=== PATIENT | male | born 1985 | race Caucasian/White ===

== ENCOUNTER 2016-11-30 08:25 | Observation (INO) | payer OTHER ==
--- NOTE | 2016-11-30 08:17 | EDPHY ---
H & P Constitutional: Initial Vital Signs Temperature (C) 36.9 C 11/30/16 08:26 Heart Rate 91 11/30/16 08:26 Respiratory Rate 16 11/30/16 08:26 Blood Pressure 153/87 H 11/30/16 08:26 O2 Sat (%) 97 11/30/16 08:26 O2 Delivery Mode Nasal Cannula O2 (L/minute) 2 Allergies/Adverse Reactions: No Known Allergies Allergy (Unverified 02/26/13 13:38) Home Medications: Medication Instructions Recorded Albuterol Sulfate [Proair Hfa] 1 - 2 puffs IH DAILY PRN 11/30/16 Dextran 70/Hypromellose 1 each OP DAILY PRN 11/30/16 [Artificial Tears] Losartan Potassium [Cozaar 50 mg 50 mg PO DAILY 11/30/16 (*)] Medical Decision Making - Diagnostics Imaging Results: Imaging Impressions Chest X-Ray 11/30/16 08:28 Impression: Mild peribronchial thickening, which can be seen with bronchitis or fluid overload. Imaging: Discussed imaging studies w/ scallop binder Radiologist, I viewed and interpreted images myself ED Course/Re-evaluation: CHIEF COMPLAINT: Cardiac alert, near-syncope HISTORY OF PRESENT ILLNESS: The patient is a 31 y/o male arriving emergently via EMS as a Cardiac Alert with anteroseptal ST elevation and a near-syncopal event during exertion this morning. He has a history of hypertension and a family history of CAD. 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 He never had chest pain, tightness, or dyspnea. He has had similar episodes previously, but has never experienced chest pain with prior exertion. He was evaluated at [facility] 3 years ago after a similar syncope at work, but does not think he was diagnosed with cardiac disease apart from hypertension. He received 324mg PO aspirin prior to arrival. He attributes his symptoms today to exertion, dehydration, minimal sleep, and very little food or water prior to exercise this morning. He denies recent illness or trauma. He did take his normal 50mg Cozaar prior to exercising. REVIEW OF SYSTEMS: A 10 point review of systems was performed and is negative with the exception of the elements mentioned in the history of present illness. PHYSICAL EXAM: HR, BP, O2 Sat, RR. Temp noted General Appearance: Alert, well hydrated, appropriate, and non-toxic appearing. Head: Atraumatic without scalp tenderness or obvious injury Eyes: Pupils equal, round, reactive to light and accommodation, EOMI, no trauma , no injection. Ears: Clear bilaterally, no perforation, normal landmarks Nose: Atraumatic, no rhinorrhea, clear. Throat: Mucus membranes moist. Neck: Supple, nontender, no lymphadenopathy. Respiratory: No retractions, no distress, no wheezes, and no accessory muscle use. Lungs have mild scattered rhonchi. Cardiovascular: Regular rate and rhythm, no murmurs, rubs, or gallops. Good capillary refill all extremities. Gastrointestinal: Abdomen is soft, nontender, non-distended, no masses, no rebound, no guarding, no peritoneal signs. Musculoskeletal: Normal active ROM of all extremities, atraumatic. Neurological: Alert, appropriate, and interactive. Nonfocal neuro exam. Skin: No rashes, good turgor, no nodules on palpation. 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 Chews tobacco, no smoking. PCP: Dr. Marcus DIAGNOSTICS/PROCEDURES/CRITICAL CARE TIME: The 12 lead EKG was interpreted by myself. Normal sinus rhythm with ischemia in anteroseptals leads. See hard copy and/or "tracemaster" electronic copy for interpretation. Chest x-ray: mild peribronchial thickening. Echocardiogram: normal per Dr. Walsh. DIFFERENTIAL DIAGNOSIS: The differential diagnosis for the patient's near- syncope included but was not limited to vasovagal syncope, arrhythmia, dehydration, cardiogenic causes, neurogenic causes, and blood loss. MEDICAL DECISION MAKIN: Dr. Walsh, digital color press operator, at bedside. 0825: Met EMS upon arrival. This is a 31 y/o male who presents as a Cardiac Alert following an exertional near-syncopal event with associated STEMI criteria on his prehospital EKG. He has a family history of CAD and personal history of hypertension. He does not have associated chest pain. His exam is largely unremarkable. In-house EKG also shows ischemic pattern in anteroseptal leads. Patient received 324mg PO aspirin prehospitally. 0830: Dr. Stoll, textile colorist formulator, at bedside. IVs established by EMS. Labs drawn including CBC, CHEM, troponin, d-dimer. Chest x-ray and echocardiogram ordered. Cardiologists are making determination if patient will be taken to cardiac cath tech urgently or not. Dr. Walsh reviewed old EKG from [facility] in 2011, which shows some ST elevation in precordial leads. We will attempt to obtain records from [facility] where the patient was evaluated for similar symptoms. 0907: Troponin is normal. Dr. Walsh has decided not to take patient to cardiac cath tech at this time, but does think he will require this procedure soon. 0909: Spoke with hospitalist service. Dr. Jolley accepts admission for acute coronary syndrome and near-syncope. - Data Points Laboratory Results: Laboratory Results 11/30/16 08:36 11/30/16 08:36 11/30/16 11/30/16 11/30/16 08:36 08:36 08:36 WBC 6.11 10^3/uL 10^3/uL (3.80-9.50) RBC 4.52 10^6/uL 10^6/uL (4.40-6.38) Hgb 14.9 g/dL g/dL (13.7-17.5) Hct 42.9 % % (40.0-51.0) MCV 94.9 fL fL (81.5-99.8) MCH 33.0 pg pg (27.9-34.1) MCHC 34.7 g/dL g/dL (32.4-36.7) RDW 12.7 % % (11.5-15.2) Plt Count 211 10^3/uL 10^3/uL (150-400) MPV 10.2 fL fL (8.7-11.7) Neut % (Auto) 56.2 % % (39.3-74.2) Lymph % (Auto) 24.1 % % (15.0-45.0) [place] % (Auto) 11.0 % % (4.5-13.0) Eos % (Auto) 7.4 % % (0.6-7.6) Baso % (Auto) 1.0 % % (0.3-1.7) Nucleat RBC Rel Count 0.0 % % (0.0-0.2) Absolute Neuts (auto) 3.44 10^3/uL 10^3/uL (1.70-6.50) Absolute Lymphs (auto) 1.47 10^3/uL 10^3/uL (1.00-3.00) Absolute Monos (auto) 0.67 10^3/uL 10^3/uL (0.30-0.80) Absolute Eos (auto) 0.45 10^3/uL H 10^3/uL (0.03-0.40) Absolute Basos (auto) 0.06 10^3/uL 10^3/uL (0.02-0.10) Absolute Nucleated RBC 0.00 10^3/uL 10^3/uL (0-0.01) Immature Gran % 0.3 % % (0.0-1.1) Immature Gran # 0.02 10^3/uL 10^3/uL (0.00-0.10) PT 13.8 SEC SEC (12.0-15.0) INR 1.07 (0.83-1.16) APTT 24.9 SEC SEC (23.0-38.0) D-Dimer < 0.27 ug/mLFEU ug/mLFEU (0.00-0.50) Sodium 140 mEq/L mEq/L (134-144) Potassium 4.5 mEq/L mEq/L (3.5-5.2) Chloride 105 mEq/L mEq/L (97-110) Carbon Dioxide 22 mEq/l mEq/l (22-31) Anion Gap 13 mEq/L mEq/L (8-16) BUN 26 mg/dL H mg/dL (7-23) Creatinine 1.2 mg/dL mg/dL (0.7-1.3) Estimated GFR > 60 Glucose 91 mg/dL mg/dL (70-100) Calcium 10.6 mg/dL H mg/dL (8.5-10.4) Troponin I < 0.012 ng/mL ng/mL (0-0.034) NT-Pro-B Natriuret Pep 14 pg/mL pg/mL (0-125) Departure - Departure Disposition: [facility] Inpatient Acute Clinical Impression: Acute coronary syndrome, Near syncope Condition: Fair Report Scribed for: Kade Pizano Report Scribed by: Jaylin Gates Date of Report: 11/30/16 Time of Report: 08:38
--- NOTE | 2016-11-30 08:38 | CPEKG ---
Heart Rate: 85 RR Interval: 706 P-R Interval: 164 QRSD Interval: 92 QT Interval: 372 QTC Interval: 443 P [place]: 66 QRS [place]: 11 T Wave [place]: 46 EKG Severity - ABNORMAL ECG - EKG Impression: SINUS RHYTHM EKG Impression: PROBABLE LEFT VENTRICULAR HYPERTROPHY EKG Impression: ST ELEV, PROBABLE NORMAL EARLY REPOL PATTERN Electronically Signed By: Kade Pizano 30-Nov-2016 14:38:38
[2016-11-30 08:39] LABS: % IMMATURE GRANULYOCYTES 0.3 % (0.0-1.1); ABSOLUTE IMMATURE GRANULOCYTES 0.02 10^3/uL (0.00-0.10); ADD DIFF? NO; ADD MORPH? NO; ADD SCAN? NO; ATYPICAL LYMPHOCYTE FLAG 10 (0-99); FRAGMENT RBC FLAG 0 (0-99); HEMATOCRIT 42.9 % (40.0-51.0); HEMOGLOBIN 14.9 g/dL (13.7-17.5); LEFT SHIFT FLG 0 (0-99); LIPEMIA HEMOLYSIS FLAG 90 (0-99); MEAN CELL HEMOGLOBIN CONCENTR. 34.7 g/dL (32.4-36.7); MEAN CELL VOLUME 94.9 fL (81.5-99.8); MEAN PLATELET VOLUME 10.2 fL (8.7-11.7); PLATELET CLUMPS FLAG 20 (0-99); PLATELET COUNT 211 10^3/uL (150-400); RED BLOOD CELL COUNT 4.52 10^6/uL (4.40-6.38); RED CELL DISTRIBUTION WIDTH 12.7 % (11.5-15.2)
[2016-11-30] MEDS ORDERED: LIDOCAINE 1% 300 MG/30 ML SDV ONE (08:47)
[2016-11-30] MEDS ORDERED: fentaNYL 100 MCG/2 ML INJ ONE (08:47)
[2016-11-30] MEDS ORDERED: MIDAZOLAM 2 MG/2 ML VIAL ONE (08:48)
[2016-11-30] MEDS ORDERED: IOPAMIDOL (ISOVUE-370) 150 ML BTL IV ONE (08:48)
[2016-11-30 08:49] LABS: ANION GAP 13 mEq/L (8-16); CALCIUM 10.6 mg/dL (8.5-10.4); CARBON DIOXIDE 22 mEq/l (22-31); CHLORIDE 105 mEq/L (97-110); CREATININE 1.2 mg/dL (0.7-1.3); GLOMERULAR FILTRATION RATE > 60; GLUCOSE 91 mg/dL (70-100); POTASSIUM 4.5 mEq/L (3.5-5.2); SODIUM 140 mEq/L (134-144)
[2016-11-30 08:50] LABS: APTT 24.9 SEC (23.0-38.0); INR 1.07 (0.83-1.16); PROTIME(PATIENT) 13.8 SEC (12.0-15.0)
[2016-11-30 09:01] LABS: TROPONIN I < 0.012 ng/mL (0-0.034)
[2016-11-30] MEDS ORDERED: NON-FORMULARY NEW DRUG (Dextran 70/Hypromellose [Artificial Tears] 1 EACH) OP PRN (11:14)
[2016-11-30] MEDS ORDERED: ALBUTEROL INH PREPACK MDI TAKEHOME PRN (11:14)
[2016-11-30] MEDS ORDERED: TEARS/DEXTRAN 70/HYPROMELLOSE 15 ML OPHT.BTL OP PRN (11:17)
[2016-11-30] MEDS ORDERED: ALBUTEROL 200 PUFFS/18 GM MDI IH PRN (11:18)
--- NOTE | 2016-11-30 11:46 | PDGENHP ---
History and Physical - Chief Complaint dry heaves - History of Present Illness 31 y/o male with h/o hypertension and asthma presented to the ED this morning as a cardiac altert. 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 He has been working on little sleep and a high degree of stress. He did not have breakfast this morning. On his 3rd lap of racing up [employer] he developed some nausea and dry heaves. He had to sit down and felt like he might pass out. He denies any chest pain of LOC. Currently he feels better. He had a similar episode 3-4 years ago at which time he had a negative workup with negative stress testing at [facility]. History Information - Allergies/Home Medication List Allergies/Adverse Reactions: No Known Allergies Allergy (Unverified 02/26/13 13:38) Home Medications: Albuterol Sulfate [Proair Hfa] 1 - 2 puffs IH DAILY PRN 11/30/16 [Last Taken Unknown] Dextran 70/Hypromellose [Artificial Tears] 1 each OP DAILY PRN 11/30/16 [Last Taken Unknown] Losartan Potassium [Cozaar 50 mg (*)] 50 mg PO DAILY 11/30/16 [Last Taken ] I have personally reviewed and updated: family history, medical history, social history, surgical history - Past Medical History asthma, hypertension - Surgical History Additional surgical history: rotator cuff repair - Family History Additional family history: maternal GM CAD - Social History Smoking Status: Never smoked Review of Systems ROS: 10pt was reviewed & negative except for what was stated in HPI & below Physical Exam Temp Pulse Resp BP Pulse Ox 36.6 C 65 14 143/62 H 95 11/30/16 10:53 11/30/16 10:53 11/30/16 10:53 11/30/16 10:53 11/30/16 10:53 Constitutional: no apparent distress, appears nourished, not in pain Eyes: PERRL, anicteric sclera, EOMI Ears, Nose, Mouth, Throat: moist mucous membranes, hearing normal, ears appear normal, no oral mucosal ulcers Cardiovascular: regular rate and rhythym, no murmur, rub, or gallop, No edema Respiratory: no respiratory distress, no rales or rhonchi, clear to auscultation Gastrointestinal: normoactive bowel sounds, soft, non-tender abdomen, no palpable masses Genitourinary: no bladder fullness, no bladder tenderness Skin: warm, normal color, no rashes or abrasions, no fluctuance, no induration, No mottled Musculoskeletal: full muscle strength, no muscle tenderness, normal joint ROM, no joint effusions Psychiatric: interacting appropriately, not anxious, not encephalopathic, thought process linear Lymph, Heme, Immunologic: no cervical LAD, no supraclavicular LAD Lab Data & Imaging Review 11/30/16 08:36 11/30/16 08:36 WBC 6.11 10^3/uL (3.80-9.50) 11/30/16 08:36 RBC 4.52 10^6/uL (4.40-6.38) 11/30/16 08:36 Hgb 14.9 g/dL (13.7-17.5) 11/30/16 08:36 Hct 42.9 % (40.0-51.0) 11/30/16 08:36 MCV 94.9 fL (81.5-99.8) 11/30/16 08:36 MCH 33.0 pg (27.9-34.1) 11/30/16 08:36 MCHC 34.7 g/dL (32.4-36.7) 11/30/16 08:36 RDW 12.7 % (11.5-15.2) 11/30/16 08:36 Plt Count 211 10^3/uL (150-400) 11/30/16 08:36 MPV 10.2 fL (8.7-11.7) 11/30/16 08:36 Neut % (Auto) 56.2 % (39.3-74.2) 11/30/16 08:36 Lymph % (Auto) 24.1 % (15.0-45.0) 11/30/16 08:36 [place] % (Auto) 11.0 % (4.5-13.0) 11/30/16 08:36 Eos % (Auto) 7.4 % (0.6-7.6) 11/30/16 08:36 Baso % (Auto) 1.0 % (0.3-1.7) 11/30/16 08:36 Nucleat RBC Rel Count 0.0 % (0.0-0.2) 11/30/16 08:36 Absolute Neuts (auto) 3.44 10^3/uL (1.70-6.50) 11/30/16 08:36 Absolute Lymphs (auto) 1.47 10^3/uL (1.00-3.00) 11/30/16 08:36 Absolute Monos (auto) 0.67 10^3/uL (0.30-0.80) 11/30/16 08:36 Absolute Eos (auto) 0.45 10^3/uL (0.03-0.40) H 11/30/16 08:36 Absolute Basos (auto) 0.06 10^3/uL (0.02-0.10) 11/30/16 08:36 Absolute Nucleated RBC 0.00 10^3/uL (0-0.01) 11/30/16 08:36 Immature Gran % 0.3 % (0.0-1.1) 11/30/16 08:36 Immature Gran # 0.02 10^3/uL (0.00-0.10) 11/30/16 08:36 PT 13.8 SEC (12.0-15.0) 11/30/16 08:36 INR 1.07 (0.83-1.16) 11/30/16 08:36 APTT 24.9 SEC (23.0-38.0) 11/30/16 08:36 D-Dimer < 0.27 ug/mLFEU (0.00-0.50) 11/30/16 08:36 Sodium 140 mEq/L (134-144) 11/30/16 08:36 Potassium 4.5 mEq/L (3.5-5.2) 11/30/16 08:36 Chloride 105 mEq/L (97-110) 11/30/16 08:36 Carbon Dioxide 22 mEq/l (22-31) 11/30/16 08:36 Anion Gap 13 mEq/L (8-16) 11/30/16 08:36 BUN 26 mg/dL (7-23) H 11/30/16 08:36 Creatinine 1.2 mg/dL (0.7-1.3) 11/30/16 08:36 Estimated GFR > 60 08/06/17 08:36 Glucose 91 mg/dL (70-100) 11/30/16 08:36 Calcium 10.6 mg/dL (8.5-10.4) H 11/30/16 08:36 Troponin I < 0.012 ng/mL (0-0.034) 11/30/16 08:36 NT-Pro-B Natriuret Pep 14 pg/mL (0-125) 11/30/16 08:36 Visualized and Interpreted Chest x-ray results: Yes Chest X-Ray results: normal Visualized and Interpreted EKG results: Yes EKG Interpretation: Positive for: ST elevation (j point v2-v5) Assessment & Plan Assessment: 31 y/o male with history of hypertension presenting with #exercise induced presyncope and dry heaves likely due to over exertion -I discussed the case with Dr. Stoll from Cardiology who saw the patient in the ED and does not think the ST elevation represents ACS -Will repeat a 6 hour troponin and plan for dc as long as second troponin is negative -[facility] #htn (controlled) -cont home dose of arb
--- NOTE | 2016-11-30 16:38 | ECHO ---
[id number] + + [address] : : [facility] [address] : : [phone] + + Adult Echocardiographic Report + + :Name: PANCHO MCLEAN Waldo Study Date: 11/30/2016 08:56 AM : : Hospital Admission Number: [id number] : :: 1985 Gender: Male : :Age: 31 yrs Race: WH : :Reason For Study: Cardiac alert : + + Doppler Measurements \T\ Calculations TR max mojgan: 259.0 cm/sec TR max P.8 mmHg RAP systole: 5.0 mmHg RVSP(TR): 31.8 mmHg Left Ventricle The left ventricle is normal in size. There is normal left ventricular wall thickness. Left ventricular systolic function is normal. EF estimate is 60- 65%. No regional wall motion abnormalities noted. Right Ventricle The right ventricle is normal in size and function. Atria The left atrial size is normal. Right atrial size is normal. Mitral Valve The mitral valve is normal in structure and function. There is trace mitral regurgitation. Tricuspid Valve Normal tricuspid valve. There is trace tricuspid regurgitation. Aortic Valve The aortic valve is trileaflet. The aortic valve opens well. There is no aortic stenosis. There is no aortic insufficiency. Pulmonic Valve The pulmonic valve is not well visualized. There is no pulmonic valvular regurgitation. Great Vessels The aortic root is normal size. Pericardium/Pleural There is no pericardial effusion. Conclusion A complete two-dimensional transthoracic echocardiogram was performed (2D, M-mode, Doppler and color flow Doppler). (1) Left ventricular systolic ejection fraction was normal (60-65%) - normal wall motion (2) No left ventricular hypertrophy (3) Diastolic function was not assessed in this study (4) Normal right ventricular size and function (5) Normal atrial dimensions (6) Physiologic mitral regurgitation (7) Trileaflet aortic valve without sclerosis or insufficiency (8) Physiologic tricuspid regurgitation (9) Poor visualization of the pulmonic valve (10) No comparison echocardiograms Final Reading Physician: Omari Glez signed on 11/30/2016 04:37 PM Ordering Physician: Kade Pizano Performed By: Diana Guerra RDCS
--- NOTE | 2016-11-30 17:41 | GCON ---
[f rep st] CONSULTATION DATE OF CONSULTATION: 11/30/2016 CHIEF COMPLAINT: We have been asked by Dr. Pizano to evaluate this patient as a cardiac alert. HISTORY OF PRESENT ILLNESS: The patient is a 31-year-old gentleman with risk factors including hype rtension and family history, who was admitted on 11/30/2016 as a cardiac alert. 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 He had recently been participating in a controlled burn at [facility]. 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 The patient was carrying a 45-pound backpack up and down the hills with him during the wind sprints. His 3rd time up the hill, he began to have symptoms of nausea and vomiting. He had t o sit down and felt like he might pass out. The patient denies symptoms of chest pain or significan t dyspnea with the activity. There was no jeri loss of consciousness. He was helped by his crew lee turner down to the base [place], and EMS was activated. Initial EKG demonstrated ST-segment elevation in leads V1 through V4, and patient was brought to the emergency department as a cardiac alert. On arr ival in the emergency department, patient stated he felt quite well and was denying symptoms of ches t pain or shortness of breath. He was no longer nauseated and did not feel lightheaded. Patient st ates they had been working on a control burn for several days. He reports he had been not keeping u p with his p.o. intake and noticed that his urine was quite dark in color. The patient had been act mally prior to this event without any difficulties. The patient does report a previous hospital admis bryn to [facility] approximately 3 years previously for a very similar condition, at which time h radha did actually have loss of consciousness. His EKG during that admission was also notable for J-poi nt elevation across the precordial leads. He subsequently underwent stress testing at [facility] , which demonstrated no evidence of ischemia or infarction, and preserved left ventricular systolic function. There is no history of palpitations, orthopnea or PND. PAST MEDICAL HISTORY: Hypertension. MEDICATIONS: Losartan. ALLERGIES: No known drug allergies. 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 He does not smoke. He michael es problems with alcohol. FAMILY HISTORY: Notable for coronary artery disease at an early age of onset. REVIEW OF SYSTEMS: A 10-point review of systems is negative, except as noted in HPI. PHYSICAL EXAMINATION: GENERAL: Patient is resting in bed. He does not appear to be in acute distr ess. VITAL SIGNS: Temperature is afebrile. Pulse is 91, blood pressure 153/87, SaO2 is 97% on reginaldo m air. HEENT: Normocephalic, atraumatic. Extraocular muscles intact. NECK: No JVD. No bruits. LUNGS: Clear to auscultation bilaterally. CARDIOVASCULAR: Regular rate and rhythm. S1, S2. No murmurs, rubs or gallops appreciated. ABDOMEN: Soft, nontender, with normoactive bowel sounds. EX TREMITIES: No clubbing, cyanosis or edema. SKIN: Blackened with soot. NEUROLOGIC: Patient is aw alirio, alert and oriented x3. LABORATORY: Sodium 140, potassium 4.5, chloride 105, CO2 22, BUN 26, creatinine 1.2. Troponin less than 0.012. White blood cell count 6.11, hemoglobin 14.9, hematocrit 42.9, platelet count 211. IN R 1.0. D-dimer 0.27. EKG demonstrates sinus rhythm, normal axis, normal intervals. J-point elevations in leads V1 throug h V4. The patient did have an old EKG performed in 2011 at his primary care physician's office. EK G at that time also demonstrated J-point elevation. Echocardiogram performed emergently at bedside demonstrated normal left ventricular size and systoli c function with no segmental wall motion abnormalities. ASSESSMENT AND PLAN: The patient is a 31-year-old gentleman with risk factors including age and fam sandeep history, who presents as a cardiac alert after doing strenuous physical activity during a [employer] drill. His EKG is notable for J-point elevation across the precordial leads and is concernin g for angina; however, patient's old EKG has a similar J-point elevation across the precordial leads . His echocardiogram performed at bedside at the time of EKG demonstrates normal left ventricular s ize and systolic function with no segmental wall motion abnormalities. At this time, patient denies any symptoms of chest pain, nausea, vomiting, syncope or presyncope. Reviewed options for risk str atification including admission for serial biomarkers and subsequent risk stratification with stress testing versus cardiac catheterization. The patient wishes to pursue a less invasive approach. We will plan on trying to obtain his old records from [facility] for which it sounds like he had a very similar hospital presentation. /[id number]/MODL
[2016-12-01] MEDS: LOSARTAN POTASSIUM 50 MG TAB PO SCH (10:35)
--- NOTE | 2016-12-01 14:08 | CPR ---
[f rep st] NONINVASIVE CARDIAC PROCEDURE REPORT DATE OF PROCEDURE: 12/01/2016 PROCEDURE: Exercise nuclear stress test. INDICATION: The patient is a 31-year-old male who presented to the hospital after fairly [place] phys [place]. He developed nausea, vomiting and ex treme fatigue, and was found to have an abnormality on his EKG. His risks factors for coronary hcavo ry disease include hypertension and he chews tobacco. DESCRIPTION OF PROCEDURE: Consent was obtained, and the patient was placed on continuous telemetry. His resting EKG revealed normal sinus rhythm without any ischemic EKG changes. The patient walked on the treadmill for 12 minutes without any associated symptoms. He developed approximately 0.[address] depression diffusely, which recovered within 1 minute of recovery. His blood press ure peaked at 198/80. He was symptom-free throughout the study. His EKG returned to baseline withi n 3 minutes of recovery. PLAN: Low-risk exercise treadmill test. Await nuclear images. /[id number]/MODL
[2016-12-01] MEDS ORDERED: NITROGLYCERIN 0.4 MG BTL SL PRN (16:54)
[2016-12-01] MEDS ORDERED: ACETAMINOPHEN 325 MG TAB PO PRN (16:54)
[2016-12-01] MEDS ORDERED: TEMAZEPAM 15 MG CAP PO PRN (16:54)
--- NOTE | 2016-12-01 17:00 | PDCARPN ---
Cardiology Progress Note Chief Complaint: syncope Assessment/Plan: Assessment/Plan: The patient is a 31 y/o M with a history of recurrent syncope with exertion. Admitted [place]. Trops are negative but his nuc stress showed a moderate infarct but no wall motion abnormalites. Pt discussed with Dr. Stoll. Plan for cath tomorrow morning. Risk, benefits, and alternatives discussed with the patient. He does have a strong family history of premature CAD and HTN. 12/01/16 16:57 Subjective: He denies any palpitations, SOB, or CP Objective: Vital Signs (8 Hrs) Temp Pulse Resp BP Pulse Ox 12/01/16 15:45 36.6 C 49 L 13 140/83 H 98 12/01/16 12:00 36.6 C 42 L 13 121/76 H 99 12/01/16 10:35 126/73 H Intake/Output (24 Hrs) 11/30/16 12/01/16 12/02/16 05:59 05:59 05:59 Intake Total 1999 Balance 1999 Intake: Oral (ml) 1000 IV Infused (ml) 1000 Other: Weight 97.9 kg Intake Quantity Yes Sufficient Number of Voids 2 Toilet 4 tele- NSR Result Diagrams: 11/30/16 08:36 11/30/16 08:36 Cardiac Labs: Cardiac Lab Results (72 Hrs) 11/30/16 11/30/16 19:12 13:10 Troponin I 0.020 0.026 - Physical Exam Constitutional: WDWN Cardiovascular: regular rate and rhythm, no murmurs, no rubs, no gallops Respiratory: clear to auscultate bilat Skin: no edema ICD10 Worksheet Patient Problems: Problems Problem Status Onset Acute coronary syndrome Acute Near syncope Acute
[2016-12-01] MEDS ORDERED: ACETAMN/DIPHENHYDRAMINE 500/25MG TAB PO PRN (17:14)
--- NOTE | 2016-12-01 21:46 | HOSPPROG ---
Hospitalist Progress Note Assessment/Plan: 31 y/o male with history of hypertension presenting with #exercise induced presyncope and dry heaves likely due to over exertion -trop negative x 3 -stress test done today is negative for ischemia, but reportedly shows area of previous infarction #htn (controlled) -cont home dose of arb Dispo: Plan for heart cath in am. npo after midnight change to inpatient status Subjective: no chest pain. resolved nausea. no acute complaints Objective: Vital Signs Temp Pulse Resp BP Pulse Ox 36.7 C 54 L 18 138/71 H 97 12/01/16 19:57 12/01/16 19:57 12/01/16 19:57 12/01/16 19:57 12/01/16 19:57 11/30/16 12/01/16 12/02/16 05:59 05:59 05:59 Intake Total 1999 2149 Balance 1999 2149 PT 13.8 SEC (12.0-15.0) 11/30/16 08:36 INR 1.07 (0.83-1.16) 11/30/16 08:36 - Physical Exam Eyes: PERRL, anicteric sclera, EOMI Ears, Nose, Mouth, Throat: moist mucous membranes, hearing normal, ears appear normal, no oral mucosal ulcers Cardiovascular: regular rate and rhythym, no murmur, rub, or gallop Respiratory: no respiratory distress, no rales or rhonchi, clear to auscultation Gastrointestinal: normoactive bowel sounds, soft, non-tender abdomen, no palpable masses ICD10 Worksheet Patient Problems: Problems Problem Status Onset Acute coronary syndrome Acute Near syncope Acute
[2016-12-02 05:23] LABS: % IMMATURE GRANULYOCYTES 0.3 % (0.0-1.1); ABSOLUTE IMMATURE GRANULOCYTES 0.02 10^3/uL (0.00-0.10); ADD DIFF? NO; ADD MORPH? NO; ADD SCAN? NO; ATYPICAL LYMPHOCYTE FLAG 10 (0-99); FRAGMENT RBC FLAG 0 (0-99); HEMATOCRIT 45.4 % (40.0-51.0); HEMOGLOBIN 15.3 g/dL (13.7-17.5); LEFT SHIFT FLG 0 (0-99); LIPEMIA HEMOLYSIS FLAG 80 (0-99); MEAN CELL HEMOGLOBIN 32.8 pg (27.9-34.1); MEAN CELL HEMOGLOBIN CONCENTR. 33.7 g/dL (32.4-36.7); MEAN CELL VOLUME 97.2 fL (81.5-99.8); MEAN PLATELET VOLUME 10.3 fL (8.7-11.7); PLATELET CLUMPS FLAG 20 (0-99); PLATELET COUNT 212 10^3/uL (150-400); RED BLOOD CELL COUNT 4.67 10^6/uL (4.40-6.38); RED CELL DISTRIBUTION WIDTH 12.8 % (11.5-15.2)
[2016-12-02 05:27] LABS: INR 1.12 (0.83-1.16); PROTIME(PATIENT) 14.3 SEC (12.0-15.0)
[2016-12-02 05:28] LABS: APTT 28.3 SEC (23.0-38.0)
[2016-12-02 05:40] LABS: ANION GAP 12 mEq/L (8-16); CALCIUM 10.3 mg/dL (8.5-10.4); CARBON DIOXIDE 23 mEq/l (22-31); CHLORIDE 106 mEq/L (97-110); CHOLESTEROL 139 mg/dL (140-200); CHOLESTEROL/HDL RATIO 3.97 RATIO (1.00-4.97); GLOMERULAR FILTRATION RATE > 60; GLUCOSE 100 mg/dL (70-100); HIGH DENSITY LIPOPROTEIN 35 mg/dL (40-65); LDL/HDL RATIO 2.43 RATIO (1.00-3.64); LOW DENSITY LIPOPROTEIN 85 mg/dL (70-100); MAGNESIUM 2.1 mg/dL (1.6-2.3); NON-HIGH DENSITY LIPOPROTEIN 104 mg/dL (90-129); POTASSIUM 4.3 mEq/L (3.5-5.2); SODIUM 141 mEq/L (134-144); TRIGLYCERIDE 98 mg/dL (40-150); VERY LOW DENSITY LIPOPROTEINS 19 mg/dL (8-25)
[2016-12-02] MEDS ORDERED: diphenhydrAMINE 25 MG CAP PO ONE ×2 (06:00→08:27)
[2016-12-02] MEDS ORDERED: ASPIRIN EC 325 MG TAB PO ONE ×2 (06:00→08:28)
[2016-12-02] MEDS ORDERED: DIAZEPAM 5 MG TAB PO ONE (06:00)
[2016-12-02] MEDS ORDERED: FAMOTIDINE 20 MG TAB ONE (08:27)
[2016-12-02] MEDS ORDERED: DIAZEPAM 5 MG TAB ONE (08:28)
[2016-12-02] MEDS: LOSARTAN POTASSIUM 50 MG TAB PO SCH (08:49)
[2016-12-02] MEDS ORDERED: fentaNYL 100 MCG/2 ML INJ ONE (09:11)
[2016-12-02] MEDS ORDERED: LIDOCAINE 1% 300 MG/30 ML SDV ONE (09:11)
[2016-12-02] MEDS ORDERED: MIDAZOLAM 2 MG/2 ML VIAL ONE ×2 (09:11→10:12)
[2016-12-02] MEDS ORDERED: IOPAMIDOL (ISOVUE-370) 150 ML BTL IV ONE (09:12)
--- NOTE | 2016-12-02 10:44 | PDDXCAT ---
Diagnostic Cath Note - . Date: 12/02/16 Maintenance Representative: Jerman Indication: other (syncope with abnormal stress testing (revealing ) High-risk criteria on non-invasive testing: stress-induced moderate-size multiple perfusion defects - Procedure Access: right groin Procedure: left heart catheterization, coronary angiography, left ventriculogram - Materials Left Heart Cath size: 6F Left Heart Cath materials: standard multipack (JL4, JR4, pigtail) - Findings-Left Heart Catheterization LM: Medium diameter vessel with bifurcation into the LAD and LCX. No luminal irregularities noted. LAD: Medium diameter vessel with three medium sized diagonals (#2 and #3 were principal). In the mid portion of the LAD, there is a small myocardial bridge. No impact on blood flow. LAD traverses to the apex of the heart. No CAD noted. LCX: Smallish vessel with an early take off OM1. This early OM is the principal branch vessel. No luminal irregularites to any of the LCX system. RCA: Large, dominal vessel with supply to the PDA (wrap around). There was no appreciable luminal irregularities noted. EDP: 20 mm Hg LVEF: 65% Wall motion: normal wall motion Complications: none Estimated blood loss: <50ml Closure method: Angioseal Assessment: 31 y/o male with history of syncope (twice) with stress echocardiogram in the past (no ischaemia noted) and MPI with this hospitalization. There were "infarct" patterns noted, but normal wall motion and LVEF. Angiography without CAD noted. Normal left ventricular systolic ejectoin fraction was noted. Plan: Annual assessment of cholesterol and LFTs. Would continue with aggressive hydration - this may have been the etiology for the events that have been noted. I did discuss LINQ implant with the family (down the road) given arrhythmia as possible, albeit unlikely, etiology for the events that have been noted. Intervention: none Patient Problems: Problems Problem Status Onset Acute coronary syndrome Acute Near syncope Acute
[2016-12-02 13:03] VITALS: BP 115/79; PULSE 50; RESP 11; TEMP 97.5; O2SAT 97
--- NOTE | 2016-12-02 19:03 | GDS ---
[f rep st] DISCHARGE SUMMARY DISCHARGE DIAGNOSES: 1. Exercise-induced presyncope and dry haves, most likely due to overexertion. 2. Abnormal EKG with J-point ST-segment elevation in the anterior leads. 3. Controlled hypertension. CONSULTANTS: Dr. Maynor Stoll. HOSPITAL COURSE: Exertional presyncope: The patient presented to the hospital after he developed n ear syncope and dry heaves while doing hill sprints. His initial EKG revealed some J-point elevatio n in the anterolateral leads. Serial troponins were done that were negative. Prior to discharge on 12/01/2016, the patient had a myocardial perfusion scan that was negative for ischemia, but was sally d by the radiologist of having evidence for lnsuvvvf-krljvvmx-bgyhuou infarctions without ischemia. Due to this abnormal finding on his nuclear imaging, he was taken for cardiac cath on 12/02/2016, w hich did not corroborate any signs of previous infarction. Angiography did not note any coronary ar amee disease. His left ventricular ejection fraction was normal. PHYSICAL EXAMINATION: On day of discharge: VITAL SIGNS: Blood pressure 115/79, pulse of 50, respi ratory rate 11, O2 sat 97% on room air. GENERAL: No acute distress. HEART: S1 and S2. LUNGS: C lear. ABDOMEN: Soft. EXTREMITIES: No edema. PERTINENT LABORATORY AND STUDIES DONE THIS HOSPITAL STAY: 1. Cardiac catheterization done 12/02/2016, refer to report. 2. Myocardial perfusion scan done 12/01/2016, refer to report. 3. Echocardiogram done 11/30/2016, refer to report. DISCHARGE MEDICATIONS: Please refer to discharge medication reconciliation in [facility] for details. DISCHARGE INSTRUCTIONS: The patient will be discharged from the hospital where he should follow up with a primary care provider for routine hospital followup. He should have annual assessment of his cholesterol and LFTs. Dr. Stoll did discuss the possible LINQ implant if he continues to have pro blems with exertion to evaluate for arrhythmia. /[id number]/MODL
== END 2016-12-02 15:50 | disposition home or self-care (01) ==
LOC: EDUNIT# → F2W 10:51 → OBSVTOIN 12-01 21:46 → INTOOBSV 12-01 21:46
PROVIDERS: ADMIT Family Medicine; ATTEND Family Medicine
PROC: 4A023N7 Measurement of Cardiac Sampling and Pressure, Left Heart, Percutaneous Approach (ICD-10-PCS; principal; 2016-11-30)
PROC: B2151ZZ Fluoroscopy of Left Heart using Low Osmolar Contrast (ICD-10-PCS; principal; 2016-11-30)
PROC: B2111ZZ Fluoroscopy of Multiple Coronary Arteries using Low Osmolar Contrast (ICD-10-PCS; principal; 2016-11-30)
DX: R55 Syncope and collapse (principal); R94.31 Abnormal electrocardiogram [ECG] [EKG]; I10 Essential (primary) hypertension; J45.909 Unspecified asthma, uncomplicated; Z82.49 Family history of ischemic heart disease and other diseases of the circulatory system
CPT/HCPCS: 71010; 78452; 93005; 93017; 93306; 93458; 99285; A9500; G0378; C1760; J1200; J1644; J2250; J3010; Q9967

== ENCOUNTER 2018-06-22 09:42 | Emergency (ER) | payer OTHER ==
[2018-06-22 09:47] VITALS: BP 158/92
--- NOTE | 2018-06-22 10:15 | EDPHY ---
General Time Seen by Provider: 06/22/18 09:53 Narrative: CLINICAL IMPRESSION: Minor closed head injury, scalp laceration ASSESSMENT/PLAN: 32-year-old male presents to the emergency department after he was hit in the head by a 2 x 8 at work today. No loss of consciousness, antegrade or retrograde amnesia, and he has a nonfocal neurological exam. No reports of headache, dizziness, vertigo, acute vision change or neck pain. No upper extremity radiculopathy. He has a superficial laceration to the frontal scalp not requiring sparkle. Tetanus reported up-to-date. Wound care provided. Minor head injury and minor concussion as well as post concussive syndrome discussed. Follow up with primary care. Warning signs return to ED outlined discharge. DIFFERENTIAL DIAGNOSIS: includes but not limited to laceration of tendon or vascular structure, underlying fracture, laceration with retained FB CHIEF COMPLAINT: Laceration HPI: 32-year-old male presents to the emergency department with a scalp laceration sustained at work. 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 No loss of consciousness, altered mental status, antegrade or retrograde amnesia. No vomiting. No reports of neck pain, upper extremity numbness or weakness. Patient is not anticoagulated. Tetanus is up-to-date. No acute vision or hearing changes. He is otherwise healthy. PAST MEDICAL HISTORY: Hypertension Pertinent Past Surgical History: None reported Social History: Otherwise healthy REVIEW OF SYSTEMS: All other systems negative Constitutional: No fever, no chills Musculoskeletal: No deformity, no joint pain Skin: Scalp laceration Neurological: No sensory loss or weakness, 2 point discrimination intact. PHYSICAL EXAM: General Appearance: Alert, oriented, appropriate for age, cooperative, NAD, well hydrated, non-toxic appearing, VSS, no hypoxia. Neurological: Alert and oriented x 3, no focal neurological deficits Skin: Superficial laceration to left frontal scalp. This does not require sparkle. Small underlying hematoma Musculoskeletal: Full range of motion of upper extremities. 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 Secondary supervising physician at time of evaluation was Dr. Pizano . Diagnosis: Minor closed head injury, scalp laceration. New, requires workup Summary: See assessment and plan for summary of ED visit Patient Progress stable for discharge. - History Smoking Status: Never smoked - Objective Vital Signs: Initial Vital Signs Temperature (C) 36.9 C 06/22/18 09:45 Heart Rate 68 06/22/18 09:45 Respiratory Rate 18 06/22/18 09:45 Blood Pressure 158/92 H 06/22/18 09:45 O2 Sat (%) 95 06/22/18 09:45 O2 Delivery Mode Room Air Allergies/Adverse Reactions: No Known Allergies Allergy (Unverified 02/26/13 13:38) Home Medications: Medication Instructions Recorded Albuterol Sulfate [Proair Hfa] 1 - 2 puffs IH DAILY PRN 11/30/16 Dextran 70/Hypromellose 1 each OP DAILY PRN 11/30/16 [Artificial Tears] Losartan Potassium [Cozaar 50 mg 50 mg PO DAILY 11/30/16 (*)] Departure - Departure Disposition: Home, Routine, Self-Care Clinical Impression: Scalp laceration Qualifiers: Encounter type: initial encounter Qualified Code(s): S01.01XA - Laceration without foreign body of scalp, initial encounter Closed head injury Qualifiers: Encounter type: initial encounter Qualified Code(s): S09.90XA - Unspecified injury of head, initial encounter Condition: Good Instructions: Laceration (ED), Head Injury (ED) Additional Instructions: DISCHARGE INSTRUCTIONS FROM YOUR DOCTOR Thank you for visiting our emergency department today. You were treated by a physician restaurant assistant today and your case was reviewed with our ED Attending physician. Please keep in mind that discharge from the emergency department does not mean that there is nothing wrong - it simply means that we have not identified an emergency condition that requires further evaluation or treatment in the hospital. You should always plan to follow up with primary care for re- evaluation of your condition in the next 2-3 days. If you have been referred to a specialist, please call as soon as possible (today or tomorrow) to schedule your follow up appointment at the appropriate time. YOUR LACERATION DOES NOT REQUIRE SPARKLE OR SUTURES. YOU HAVE A NONFOCAL NEUROLOGICAL EXAM. YOU MAY EXPERIENCE MILD HEADACHES, CONFUSION, DIZZINESS, OR NAUSEA. PLEASE FOLLOW-UP WITH A PRIMARY CARE PROVIDER OR WORKMEN COMP PROVIDER IN THE NEXT 24-48 HOURS. RETURN TO THE EMERGENCY DEPARTMENT IMMEDIATELY FOR SEVERE HEADACHE, ALTERED MENTAL STATUS, SEIZURE ACTIVITY, VOMITING, SEVERE NECK PAIN, WEAKNESS OR NUMBNESS TO YOUR ARMS HANDS OR FINGERS, OR ANY OTHER CONCERNS. People present with illnesses and injuries in different ways, and it is always possible that we have missed something. You may always return for re-evaluation if symptoms worsen or if they are not improving or if you develop new/different symptoms. Again, thank you for choosing our emergency department. We hope that you feel better. Referrals: Whitley Acosta PA [Primary Care Provider] - 1-2 days without fail Stand Alone Forms: Work Excuse
== END 2018-06-22 10:25 | disposition home or self-care (01) ==
DX: S01.01XA Laceration without foreign body of scalp, initial encounter (principal); W22.8XXA Striking against or struck by other objects, initial encounter; Y92.89 Other specified places as the place of occurrence of the external cause; Y99.0 Civilian activity done for income or pay; Y93.89 Activity, other specified